=== PATIENT | male | born 1950 | race Caucasian/White ===

== ENCOUNTER 2024-08-03 08:55 | Inpatient (IN) | payer OTHER, MEDICARE, SELFPAY ==
[2024-07-29 07:33] VITALS: BMI 34.0
[2024-08-03] VITALS (18 sets, daily range): BP systolic 96–144; BP diastolic 54–70; PULSE 67–83; RESP 10–20; TEMP 35.9–36.9; O2SAT 83–98; BMI 34.1
--- NOTE | 2024-08-03 06:00 | DI.RAD.S_ITS ---
PROCEDURE: XR KNEE RT 1TO2V INDICATIONS: TKA TECHNIQUE: 2 view(s) of the knee acquired. COMPARISON: [facility] [place], [place], XR BONE LENGTH SCANOGRAM, 06/29/2024, 9:03. FINDINGS: Bones: Patient is status post revision knee joint arthroplasty. Hardware components are in expected positions. Visualized bony structures are intact. Soft tissues: Overlying postoperative changes are noted. IMPRESSION: Expected post-operative appearance of a knee arthroplasty. Dictated by: Irma Nunez M.D. on 08/03/2024 at 20:57 Approved by: Irma Nunez M.D. on 08/03/2024 at 20:58
[2024-08-03] MEDS: ACETAMINOPHEN 325 MG TABLET 975 MG PO (10:16)
[2024-08-03] MEDS: LACTATED RINGERS 1,000 ML 42 ML IV ×3 (10:17→15:54)
[2024-08-03] MEDS: ALBUTEROL/IPRATROPIUM 3 ML AMPUL INH ×2 (10:17→19:40)
[2024-08-03] MEDS: GABAPENTIN 300 MG CAPSULE PO (10:17)
--- NOTE | 2024-08-03 10:17 | PM.PREOP ---
Pre-operative Note Interval Note History & Physical reviewed/Exam performed by Physician: Yes Changes to H&P: No
[2024-08-03] MEDS: TRANEXAMIC ACID 1,000 MG VIAL 1000 MG INJ ×2 (11:20→15:38)
[2024-08-03] MEDS: CEFAZOLIN 2 GM/100 ML PREMIX 100 ML IV ×2 (11:20→14:10)
[2024-08-03] MEDS: CEFEPIME 2 GM in SODIUM CHLORIDE 0.9% 100 ML IV ×2 (11:39→23:48)
--- NOTE | 2024-08-03 11:58 | SUR.OPER ---
Supine on padded OR bed. Pillow under head, arms secured on padded armboards <90 degree abduction. Safety belt across torso. Non-operative leg secured with tape over blanket over lower leg. Operative leg secured in DeMayo/Eric positioner. Foam padded brace at thigh of operative leg.
[2024-08-03] MEDS: ROPIVACAINE/EPI/CLONIDINE/KET 50 ML SYRINGE INJ (12:11)
[2024-08-03] MEDS: VANCOMYCIN 1,000 MG VIAL 1000 MG TOP ×2 (12:56→15:07)
[2024-08-03] MEDS: GENTAMICIN 80 MG/2 ML VIAL 120 MG TOP (13:00)
--- NOTE | 2024-08-03 16:01 | P.OP_ITS ---
Operative Date/Time/Diagnoses Date of procedure: 08/03/24 Pre-op diagnosis: Right knee periprosthetic joint infection Post-op diagnosis: same Procedure & Clinicians Procedure: Explantation of right total knee arthroplasty with separate set up for implantation of antibiotic eluting cement spacer as well as antibiotic eluting calcium sulfate pellets Same procedure as scheduled: Yes Surgeon: Del Coughlin Director Of Restaurant: Yue Pearce Anesthesia Type: General, Spinal, Peripheral nerve block and Local Operative Notes Estimated Blood Loss (mL): 300 Procedure in detail: 1. Explantation of right total knee arthroplasty infected with Pseudomonas aeruginosa 2. Separate set up for implantation of antibiotic eluting cement spacer in the form of a Ignacio persona posterior stabilized femoral component and Ignacio NexGen all-polyethylene tibia 3. Insertion of calcium sulfate antibiotic pellets 4. Intraosseous delivery of cefepime Implants: * Size 9 standard posterior stabilized Ignacio persona femoral component with independent cement dowel impregnated with vancomycin and gentamicin * Size 5, 14 mm all-polyethylene Ignacio NexGen Tibial Component with a connected cement dowel impregnated with vancomycin and gentamicin * 32 mm Patella * 5 cc Stimulan calcium sulfate antibiotic pellets with vancomycin and gentamicin Cultures: -Heterotopic patellar tissue -Lateral gutter -Femoral membrane -Medial gutter -Tibial canal -Femoral canal -Periarticular tissue Procedure Summary: This 74-year-old male patient had cavitary bone loss at the site of a total knee arthroplasty performed approximately 15 years ago at an outside facility. His knee was aspirated and returned positive for Pseudomonas aeruginosa. In preparation for today's surgery referred him to an infectious disease physician at [facility] who will be helping with management of his antibiotics. Intraoperatively today I found that he was extremely stiff with an arc of motion from approximately 15-60 degrees. This made exposure challenging as there was abundant scar throughout the knee. This necessitated a quadriceps snip for exposure. The femoral component had completely debonded from the boat and was removed without any work being done to free it up from the underlying bone. The tibia appeared to remained fixed and it was necessary to use a sagittal saw as well as a single sided reciprocating saw to free it up from the bone. The patellar component was removed along with abundant heterotopic bone that had formed around the patella. There was evidence of wear in the polyethylene insert as shown in the photograph below. A separate set up was utilized for implantation of the definitive components as outlined below. Following implantation he had full flexion, mild anterior-posterior translation of the tibia in full flexion, and mild lateral laxity in full extension. Procedure in Detail: The patient was met in the preoperative holding area the day of the procedure and all questions were answered. The patient?s nares were swabbed with betadine in order to decolonize them from MRSA. Informed consent was signed and the right limb was marked with indelible ink.?The patient was brought back to the operating room where anesthesia was induced. The patient was transferred to the operating table and all bony prominences were padded. The operative site was prepped and draped in the usual sterile fashion. A second prep stick was utilized following drape placement. The incision was marked corresponding to the medial aspect of the tibial tubercle and the patella. Ioban was wrapped circumferentially around the knee. Prior to incision, tranexamic acid and cefazolin were administered. Templating images were displayed. A timeout procedure was performed verifying the patient?s identity, medical comorbidities, allergies, relevant medications, anesthesia type and the surgical plan. All present were in agreement. The assistance of a physician sales assistants and salespersons was required for positioning, room setup, soft tissue retraction and wound closure. Without this assistance, the procedure would have been significantly more challenging and time consuming.?? The tourniquet was inflated prior to incision. Prior to incision I inserted an intraosseous needle into the tibia and infiltrated the intraosseous space with 60 mL of dilute cefepime, intending that this would be distributed throughout the soft tissues of the knee due to backflow secondary to the tourniquet. I made an anterior incision over the knee which excised the old scar from his prior total knee arthroplasty. I dissected down to the old arthrotomy and identified nonresorbable stitches from his index surgery. I extended the incision slightly proximally and distally to provide good soft tissue planes. I cut through the old medial parapatellar arthrotomy. I encountered significant scar in the area while doing this which made it challenging to move on with the exposure. I initially performed a medial peel distally and then returned to the proximal arthrotomy to continue working through scar. I resected scar off the anterior cortex of the femur and attempted to ysabel the patella although this point in time I was unable to. Dissected as much scar away from the pericapsular tissues as I could, including a large piece of heterotopic bone that had formed superior to the patella and was not imbedded in the quadriceps tendon. I eventually resected both the medial and lateral gutters in order to improve my exposure but still was unable to ysabel the patella. I therefore performed a quadriceps snip arthrotomy which at that point in time allowed me to ysabel the patella. I cut heterotopic bone away from the margins of the patellar button and then cut off the patellar button while holding it everted. I used a bur to remove the polyethylene pegs from the prior patellar button as well as a rongeur to remove the underlying cement. This left 3 holes which encompassed a large portion of the patella and I planned to reuse those original holes for implantation of the patellar button at the conclusion of the procedure on the clean side as I did not feel that there was sufficient bone stock remaining 2 drill new holes. I then exposed the femoral component. I found that it was grossly loose and removed by hand without any instrumentation being passed into the bone cement interface. Considerable cement remained on the back of the femoral component but no bone loss occurred with manual extraction. I then exposed the tibia. I found that this was actually well fixed. Used a combination of a sagittal saw, a single sided reciprocating saw, and osteotomes to free it up and then used a tamp to back it out. Once this was removed used a flag osteotome to remove cement from the tibial canal until all cement had been removed. Rigid reamers were passed into the femoral and tibial canals and reamings from both were sent for culture. I made freshening cuts on both the tibia and the femur corresponding to a mechanical axis alignment based on those rigid reamers. This involved a 10 mm resection off the distal femur and a freshening cut on the tibia which I intended to be less than 5 mm. With the bony injury resected I placed a spacer block in the knee in full extension which corresponded to a 14 mm polyethylene insert and found that the knee rested in full extension. I therefore planned to use that size. I placed a size 8 femoral component initially and found that it was slightly small so I used a size 9 femoral component trial. I found that it did not quite sit down completely on the chamfers so I made a saw cut for the anterior chamfer to allow to sit down more. I then trialed with this construct and found it satisfactory. Having completed my mechanical debridement I now proceeded with a chemical debridement. This involved 3 L of normal saline followed by a dilute Betadine soak for 3 minutes followed by another 3 L of normal saline used in pulse lavage followed by a peroxide soak for 3 minutes followed by a final pulse lavage. Pulse lavage included the intramedullary canals of the femur and tibia respectively. I then placed a lap in the wound perfect the bony edges and provisionally closed with a running subcuticular nylon suture to hold the wound during turnover. In order to limit bioburden associated with the infected field all surgical instruments were taken out of the room at that point in time and all drapes were taken down. Wound was provisionally covered with a blue towel and Ioban during turnover. I marked the floor to remove any debris and the surgical team broke scrub, changed their surgical attire and re-prepped and draped the field. Having transitioned to the clean side of double set up surgery I then proceeded with preparation of cement dowels for the femoral and tibial canals to elute antibiotics into those canals. This involved preparing a batch of cement with vancomycin and gentamicin. I initially tried to utilize a small threaded K-wire in the all polyethylene insert of the tibia but it broke off twice so I used a larger 1. The broken smaller K-wires remained in the polyethylene insert in order to avoid further damage to it I left them in place and they will likely be evident radiographically on postoperative imaging. The larger K-wire extended down to form a cement stem off of the bottom of the all polyethylene tibia. A free hand dowel was also prepared around a K-wire to be inserted loosely into the femoral canal and captured by the cement placed around the femur. I trialed a patellar button and found that a 32 mm patellar button fit into the old holes appropriately so I planned to use that. The chemical debridement was repeated involving 3 rounds of pulse lavage intermixed with dilute Betadine and dilute peroxide soaks. Once the cement dowels had dried I compared for final implantation. Prior to this placed the Stimulan beads which contained vancomycin and gentamicin down the femoral and tibial canals. The bony ends were irrigated and cement was prepared. Cement was placed on the entirety of the undersurface of both the tibial and femoral components. Cement was placed onto the dry tibia and pressurized into the cancellous bone. I impacted the tibial component into place. Cement was removed. The tibia was reduced underneath the femur and placed cement onto the dry surface of the resected femur. I placed the femoral component. Cement was removed from around the femur. I brought the knee into extension and manually pressurized the construct by pushing on the heel while the cement dried. I placed cement into the patella and compressed the patellar button in place. The knee was bathed in a dilute mixture of betadine and peroxide. A mixture of Ropivacaine, Epinephrine, Clonidine and Toradol was infiltrated throughout the soft tissues into structures including the VMO, patellar tendon, quadriceps tendon, MCL and femoral periosteum. The knee was copiously irrigated with pulse lavage. Once cement had been allowed to dry the knee was again trialed. Range of motion was assessed by ensuring the knee could achieve full extension and assessing maximum passive knee flexion by elevating the femur and allowing the heel to passively fall towards the buttock. Gap symmetry was assessed by stressing the medial and lateral compartments in both extension and flexion. Laxity was assessed in both extension and flexion and the polyethylene trial was adjusted with shims as necessary. Patellar tracking was assessed with knee flexion. The tourniquet was let down and the polyethylene trial was removed. I inspected the knee inspected for excess cement and any residual bleeding. Hemostasis was achieved. The arthrotomy and the quadriceps snip were closed with non-absorbable interrupted suture ensuring that this extended to the top of the arthrotomy. This was backed up with running barbed suture throughout the arthrotomy. The skin was closed with 2-0 and 3-0 sutures. Surgical glue was applied and a soft dressing was placed.?The sponge, instrument and needle counts were reported as being correct at the end of the case.??No obvious complications occurred. The patient was transferred from the operating table back to a stretcher. The patient emerged from anesthesia without difficulty and was taken to the PACU in a stable condition.? Plan for aftercare: * Weightbearing as tolerated * Knee immobilizer to remain in place for 7 days postoperatively * Christiana incisional wound VAC in place which should remain in place until his follow up. The battery old diet for a week at which point the cord can be removed in it can be used as a normal dressing * IV cefepime has been ordered per the patient's infectious disease physician Dr. Mckenzie from [facility] in [place]. We will follow the numerous cultures that were obtained today and adjust antibiotics as needed based on those * Aspirin 81 twice per day for DVT prophylaxis * I have consulted the medical team for assistance with his baseline respiratory issues as well as management of his infectious disease needs during this admission * Multimodal pain regimen with no IV opioids ordered * Follow up at [facility] in 2 weeks * Detailed postoperative instructions available at [email or web address]
[2024-08-03] MEDS: ALBUTEROL 2.5 MG/3 ML NEB (ADULT) INH (16:58)
[2024-08-03] MEDS: TAMSULOSIN 0.4 MG CAPSULE PO (18:58)
[2024-08-03] MEDS: ACYCLOVIR 400 MG TABLET 200 MG PO (18:59)
--- NOTE | 2024-08-03 19:05 | PC.NURSE ---
Patient is a pleasant man admitted to room 223 around 1730. He had a r.total knee replacement with antibiotic spacers put in. He is groggy but alert and oriented x4. He does have some forgetfulness. Scrotum is slightly swollen and patient has a colbert catheter in. Patient has a arely drain present with an immobilizer on, weight bearing at this time is NWB. He has a rash on his r.extremity under dressing and a pinpoint rash to the l.hip. He is eating now. Patient has pulmonary hx, with copd and chf. He was given iv lasix in surgery and he is resting comfortably now.
[2024-08-03] MEDS: BUDESONIDE 0.5 MG/2 ML NEB INH (19:40)
[2024-08-03] MEDS: DOCUSATE 100 MG CAPSULE PO (20:24)
[2024-08-03] MEDS: ASPIRIN EC 81 MG TABLET PO (20:24)
[2024-08-03] MEDS: ATORVASTATIN 20 MG TABLET PO (20:24)
[2024-08-03] MEDS: OXYBUTYNIN 5 MG TABLET PO (20:24)
[2024-08-03] MEDS: ACETAMINOPHEN 325 MG TABLET 650 MG PO (23:49)
[2024-08-03] MEDS: OXYCODONE IR 5 MG TABLET PO (23:51)
[2024-08-04] VITALS (9 sets, daily range): BP systolic 94–130; BP diastolic 50–67; PULSE 68–94; RESP 12–22; TEMP 35.9–36.7; O2SAT 89–100
[2024-08-04 05:05] LABS: Hematocrit 33.4 % (41-53); Hemoglobin 10.9 g/dL (13.5-17.5)
[2024-08-04] MEDS: OXYCODONE IR 10 MG TABLET PO ×5 (06:06→23:37)
[2024-08-04] MEDS: ACETAMINOPHEN 325 MG TABLET 650 MG PO ×4 (06:06→23:49)
[2024-08-04] MEDS: ALBUTEROL/IPRATROPIUM 3 ML AMPUL INH ×3 (07:46→15:17)
[2024-08-04] MEDS: BUDESONIDE 0.5 MG/2 ML NEB INH (07:46)
[2024-08-04] MEDS: ASPIRIN EC 81 MG TABLET PO ×2 (09:43→23:37)
[2024-08-04] MEDS: DOCUSATE 100 MG CAPSULE PO ×2 (09:44→23:37)
[2024-08-04] MEDS: CYANOCOBALAMIN (VITAMIN B-12) 500 MCG TABLET 2000 MCG PO (09:44)
[2024-08-04] MEDS: PANTOPRAZOLE DR 20 MG TABLET PO (09:44)
[2024-08-04] MEDS: buPROPion XL 150 MG TAB 300 MG PO (09:44)
[2024-08-04] MEDS: FERROUS SULFATE 325 MG TABLET PO (09:44)
[2024-08-04] MEDS: OXYBUTYNIN 5 MG TABLET PO ×2 (09:44→23:38)
[2024-08-04] MEDS: FINASTERIDE 5 MG TABLET PO (09:44)
[2024-08-04] MEDS: FUROSEMIDE 20 MG TABLET PO (09:44)
[2024-08-04] MEDS: POTASSIUM CHLORIDE 10 MEQ TAB PO (09:48)
--- NOTE | 2024-08-04 11:01 | PM.PNPO.1 ---
Subjective Subjective Interval history: Nicholas is a pleasant 74 year old male who is POD#1 s/p Explantation right total knee arthroplasty with separate set up for implantation of antibiotic eluting cement spacer as well as antibiotic eluting calcium sulfate pellets for a Right knee periprosthetic joint infection by Dr. Coughlin. This morning he reports he is doing well, he has not been out of bed to work w/ PT yet but states he has been out of bed to use the bathroom. He still has his Calhoun in place. He lives at home with his and son and states he would like to discharge to home with them once medically stable. His infectious disease doctor is Dr. Mckenzie at [facility], current treatment plan as cefepime for 6 weeks. Intraop specimens obtained are currently with no growth so far, final cultures are pending. Denies fever, chills, chest pain, SOB, nausea, vomiting. Denies any numbness or tingling who has right lower extremity. Exam Vital Signs (past 8 hours): - 08/04/24 04:00 08/04/24 07:44 Temperature 97.5 F L Pulse Rate 78 71 Respiratory Rate 17 18 Blood Pressure 94/50 L Pulse Oximetry 93 93 Oxygen Delivery Method Room Air Fraction of Inspired Oxygen 28 SaO2/FiO2 Ratio 321 Oxygen Delivery Method Room Air Oxygen Flow Rate 2 Narrative Exam Narrative: Patient sitting comfortably in bed during our interview today. No acute distress. AOx3. Grossly normal alignment of the right lower extremity with moderate swelling to the right knee and ankle. 5/5 strength with DF, PF, EHL bilaterally. Knee immobilizer in place. Gross sensation intact throughout bilateral lower extremities. Calves soft and non-tender bilaterally. SCDs are on and functioning. Brisk capillary refill, pulses intact. Post-surgical dressing clean, dry and intact over the right knee without drainage. Objective Labs 08/04/24 04:53 Labs: Laboratory Results - last 24 hr 08/04/24 04:53 Hgb 10.9 L Hct 33.4 L [facility] Medical History (Updated 08/03/24 @ 10:32 by Jacek Macdonald RN) Cross-eyed Aspiration into airway Nasal fracture Nasal septal deviation Opioid dependence IBS (irritable bowel syndrome) Depression Prediabetes BANDA (dyspnea on exertion) CHF (congestive heart failure) Anemia Dysphagia HLD (hyperlipidemia) HTN (hypertension) COPD (chronic obstructive pulmonary disease) JUN on CPAP Maxillary sinusitis, chronic Surgical History (Updated 07/29/24 @ 09:44 by Basia Patricia RN) History of intestinal surgery (03/10/17) History of total right knee replacement History of appendectomy Social History household members: spouse and children Smoking Status: Former smoker alcohol intake: former Assessment & Plan Post-op Postoperative Procedures: Procedures Operation Date: 08/03/24 10:45 Actual Procedure Side Surgeon p Explantation of right total knee arthroplasty with placement of articulating antibiotic cement spacer Right Del Coughlin MD Postoperative plan narrative: 1) Plan to discharge to home today with and son today or tomorrow pending progress w/ PT, voiding trial, picc placement. Appreciate CM input on possible HH referral. 2) Continue multimodal pain management with ice to the knee for additional pain control. 3) ASA b.i.d. for DVT prophylaxis. 4) Weightbearing as tolerated but must remain in knee immobilizer for 7 days postoperatively. Outpatient physical therapy to work on range of motion and mobility. 5) Keep dressing intact, clean, dry until 2 week postop appointment. No soaking the incision site in pools or tubs. No topical ointments or creams to the incision site. 6) Follow up at [facility] orthopedics in 2 weeks for a postop appointment and wound check. 7) IV cefepime has been ordered per the patient's infectious disease physician Dr. Mckenzie from [facility] in [place]. We will follow the numerous cultures that were intra-op and adjust antibiotics as needed based on those. PICC line ordered to be placed today. 8) Discontinue Calhoun today. All patient's questions were answered, they demonstrates understanding and are in agreement with the plan. Call our office if any questions or concerns arise. Quality VTE Deep Vein Thrombosis/Pulmonary Embolism Present on Admission: No
--- NOTE | 2024-08-04 11:31 | PT.IIE ---
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, initial encounter (08/03/24) Infection and inflammatory reaction due to other internal joint prosthesis, initial encounter (08/03/24) Presence of right artificial knee joint (08/03/24) Presence of unspecified artificial knee joint (08/03/24) Surgery Performed Operation Date: 08/03/24 10:45 Actual Procedures p Explantation of right total knee arthroplasty with placement of articulating antibiotic cement spacer(Right) - Del Coughlin MD Surgical History (Last Updated 07/29/24 @ 09:44 by Basia Patricia, CYNTHIA) History of appendectomy History of intestinal surgery (03/10/17) History of total right knee replacement Medical History (Last Updated 08/03/24 @ 10:32 by Jacek Macdonald RN) Anemia Aspiration into airway CHF (congestive heart failure) COPD (chronic obstructive pulmonary disease) Cross-eyed Depression BANDA (dyspnea on exertion) Dysphagia HLD (hyperlipidemia) HTN (hypertension) IBS (irritable bowel syndrome) Maxillary sinusitis, chronic Nasal fracture Nasal septal deviation Opioid dependence JUN on CPAP Prediabetes Physical Therapy Inpatient Evaluation/Re-Eval M1 PT/OT-IP Prior Functional Status Start: 08/04/24 12:30 Freq: NEEDED Status: Active Protocol: Document 08/04/24 11:31 AB (Rec: 08/04/24 12:47 AB [id number]) Medical Review Prior Functional Status Medical History Reviewed Yes Communication able to make needs known Mobility and Gait pt stted that he was independent with all mobilities and ambulation using a SPC Social History Household Members spouse,children Living Arrangements House Number of Floors (Floors) Two Floors Number of Stairs To Enter/Railing? 2 steps without railing to enter pt will stay on main level of the house Home Environment Standard Height Toilet,Walk in Shower,Built-In Shower Seat Home Equipment Front Wheel Walker,Straight Cane,Hand Held Shower,Grab Bars In Shower Additional Social History Comment pt has a recliner and plans to sleep on at this time pt has his spouse and son to assist him at home M2 PT-IP Current Condition Start: 08/04/24 12:30 Freq: NEEDED Status: Active Protocol: Document 08/04/24 11:31 AB (Rec: 08/04/24 12:47 AB [id number]) Physical Therapy Current Condition Current Condition Evaluation Date 08/04/24 Treatment Diagnosis R knee cement space placement; difficulty in walking Onset Date 08/03/24 M3 PT-IP Subjective Start: 08/04/24 12:30 Freq: NEEDED Status: Active Protocol: Document 08/04/24 11:31 AB (Rec: 08/04/24 12:47 AB [id number]) Subjective Physical Therapy Visit Type Type Initial Evaluation Visit Start Time 11:31 Visit Stop Time 12:00 Number of HEAD CHARRER Visits 0 Physical Therapy Visit Comments Patient Comments agreeable to do PT Therapy Pain Assessment Pain When Pain Assessed At Rest Pain Present Pain Present Pain Reported Location Right Knee Intensity 5 Scale Used Numeric (0 - 10) Pain Management Techniques Distraction,Modification of Treatment,Re-positioning, Timing of Activity with Medications M4 PT-IP Mobility and Gait Start: 08/04/24 12:30 Freq: NEEDED Status: Active Protocol: Document 08/04/24 11:31 AB (Rec: 08/04/24 12:47 AB [id number]) PT-Transfer Assessment Sit to and From Stand Sit to and from Stand Standby Assistance,1 Person Assistance,Use of Upper Extremities Equipment Transfer Assistive Device Gait Belt,Front Wheeled Walker Orthotic/Prosthetic Devices or Brace: No Transfers Transfer Destination Toilet Transfer Technique ambulated Transfer Ability Level of Assist Standby Assistance,1 Person Assistance,Use of Upper Extremities Comments Mobility Comments pt sitting on EOB and agreed to do PT. Obtained PLOF and home setup. pt requested to use the toilet. completed sit to stand SBA and ambulated to the toilet using fWW SBA. sit to stand from the toilet using grab bar SBA. pt ambulated in the hallway using FWW SBA to CGA ~ 350 ft. CGA towards end of ambulation due to c/o UE tiredness. pt sat back on the chair. positioned on the chair. call light and table positioned next to pt. Gait Assessment Gait Gait Assistance Required: Standby Assistance,Contact Guard Assist Distance (Feet) 350 Able to Maintain Weight Bearing Status Yes During Gait Assistive Devices Assistive Device Gait Belt,Front Wheeled Walker Orthotic/Prosthetic Devices or Brace: No Gait Deviations General Gait Pattern Antalgic Factors Limiting Gait Function Factors Limiting Gait Function Decreased Activity Tolerance, Decreased Strength,Limited Range of Motion,Pain,Poor Balance,Poor Safety Awareness PT-Balance Assessment Sitting Balance and Reactions Static Sitting Balance Ability Normal Dynamic Sitting Balance Ability Normal Standing Balance and Reactions Static Standing Balance Ability Fair Dynamic Standing Balance Ability Fair Device Used FWW M5 PT-IP Objective Assessments Start: 08/04/24 12:30 Freq: NEEDED Status: Active Protocol: Document 08/04/24 11:31 AB (Rec: 08/04/24 12:47 AB [id number]) Orientation Orientation/Cognition Level of Alertness Alert Orientation Name,Place,Situation Language Function Ability No Deficits Noted Safety Awareness Decreased Safety Awareness Memory Description No Deficits Noted Gross Range of Motion Lower Extremity ROM Impairments R knee on knee immobilizer Strength Comments Strength Comments R knee NT: on knee immobilizer Sensation Assessment Sensation Gross Sensation WNL Muscle Tone Muscle Tone WNL Yes M6 PT-IP Treatment Start: 08/04/24 12:30 Freq: NEEDED Status: Active Protocol: Document 08/04/24 11:31 AB (Rec: 08/04/24 12:47 AB [id number]) Physical Therapy Treatment Education Education Provided Precautions,Weight Bearing Status,Safety M7 PT-IP Assessment and Plan Start: 08/04/24 12:30 Freq: NEEDED Status: Active Protocol: Document 08/04/24 11:31 AB (Rec: 08/04/24 12:47 AB [id number]) PT Summary Assessment and Plan Potential Rehabilitation Potential Fair Status of Condition at Evaluation Evolving Summary Impairments Pain,ROM,Strength,Balance, Coordination,Cognition,Bed Mobility,Transfers,Gait, Activity Tolerance Assessment Summary pt is a 74 y/o M who had a previous R TKA and underwent explantation of R TKA and implantation of antibiotic cement spacer POD1. pt is WBAT and has a R knee immobilizer on. pt requiring SBA to CGA with mobilities using FWW. pt plans to go home and will have his family assist him at home. Goals Transfer Goal Independent,Front Wheeled Walker Gait Goal Independent,Front Wheel Walker Gait Distance 350 Other Goals up/down 2 steps using SPC CGA Days to Meet Goals 5 Frequency of Treatment Frequency Of Treatment Once a Day Treatment Plan Physical Therapy Treatment Plan Bed Mobility Training,Transfer Training,Gait Training, Therapeutic Exercise,Balance Retraining,Post Op Education, Discharge Planning,Hot or Cold Pack,Neuromuscular Re-ed, Coordination Retraining,Manual Therapy Other Recommendations and Next Treatment stair climbing Focus Precautions Brace R knee immobilizer Weight Bearing Status Weight Bearing Status Weight Bear as Tolerated Allowed Weight Bearing Amount (enter % RLE WBAT or #) (%) Recommendations To Nursing Amount of Assist Needed 1 Person Assist Discharge Recommendations PT Discharge Recommendations Home with Assistance Transportation Needs at Discharge Private Vehicle
--- NOTE | 2024-08-04 12:28 | PC.NURSE ---
Patient is alert and oriented x4, he is sitting up in the chair after working with physical therapy and ambulating in the halls. He has a arely dressing with an immobilizer on, patient is bearing weight on the leg and just complains of pain now at 7/10, he is getting some tylenol and oxycodone 10mg from [facility].
[2024-08-04] MEDS: CEFEPIME 2 GM in SODIUM CHLORIDE 0.9% 100 ML IV (12:39)
--- NOTE | 2024-08-04 13:36 | DI.RAD.S_ITS ---
PROCEDURE: XR CHEST FOR PICC 1V INDICATIONS: PICC verify COMPARISON: None. FINDINGS: PICC was placed by the intravenous therapy team from the left side. Fluoroscopic spot film demonstrates the tip of PICC projecting to the area of superior vena cava. IMPRESSION: Tip of PICC projects to the area of superior vena cava. Dictated by: Isaac Goodwin M.D. on 08/04/2024 at 14:44 Approved by: Isaac Goodwin M.D. on 08/04/2024 at 14:44
--- NOTE | 2024-08-04 14:00 | OT.IP.EVAL ---
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, initial encounter (08/03/24) Infection and inflammatory reaction due to other internal joint prosthesis, initial encounter (08/03/24) Presence of right artificial knee joint (08/03/24) Presence of unspecified artificial knee joint (08/03/24) Surgery Performed Operation Date: 08/03/24 10:45 Actual Procedures p Explantation of right total knee arthroplasty with placement of articulating antibiotic cement spacer(Right) - Del Coughlin MD Past Medical History (Last Updated 08/03/24 @ 10:32 by Jacek Macdonald, CYNTHIA) Anemia Aspiration into airway CHF (congestive heart failure) COPD (chronic obstructive pulmonary disease) Cross-eyed Depression BANDA (dyspnea on exertion) Dysphagia HLD (hyperlipidemia) HTN (hypertension) IBS (irritable bowel syndrome) Maxillary sinusitis, chronic Nasal fracture Nasal septal deviation Opioid dependence JUN on CPAP Prediabetes Surgical History (Last Updated 07/29/24 @ 09:44 by Basia Patricia, CYNTHIA) History of appendectomy History of intestinal surgery (03/10/17) History of total right knee replacement Occupational Therapy Inpatient Evaluation/Re-Eval M1 PT/OT-IP Prior Functional Status Start: 08/04/24 12:30 Freq: NEEDED Status: Active Protocol: Document 08/04/24 14:31 [facility] (Rec: 08/04/24 14:43 [facility] [id number]) Medical Review Prior Functional Status Medical History Reviewed Yes Communication able to make needs known Mobility and Gait pt stated that he was independent with all mobilities and ambulation using a SPC Activities of Daily Living and IADL's Independent with all needs. Social History Household Members spouse,children Living Arrangements House Number of Floors (Floors) Two Floors Number of Stairs To Enter/Railing? 2 steps without railing to enter pt will stay on main level of the house Home Environment Standard Height Toilet,Walk in Shower,Built-In Shower Seat Home Equipment Front Wheel Walker,Straight Cane,Hand Held Shower,Grab Bars In Shower Additional Social History Comment pt has a recliner and plans to sleep on at this time pt has his spouse and son to assist him at home M2 OT-IP Current Condition Start: 08/04/24 14:31 Freq: Status: Active Protocol: Document 08/04/24 14:31 CCC (Rec: 08/04/24 14:43 [facility] [id number]) Occupational Therapy Current Condition Current Condition Evaluation Date 08/04/24 Treatment Diagnosis Right knee cement space placement Diagnosis Onset Date 08/03/24 Post Operative Precautions Other Precautions Dr. Coughlin clarified for pt to have knee immobilizer on except for hygiene needs at all times and to be taken off during 1st outpt PT appointment. Weight Bearing Status Weight Bearing Status Weight Bear as Tolerated M3 OT- IP Subjective and Pain Start: 08/04/24 14:31 Freq: Status: Active Protocol: Document 08/04/24 14:31 [facility] (Rec: 08/04/24 14:43 [facility] [id number]) OT- Subjective Occupational Therapy Visit Type Type Initial Evaluation Visit Start Time 13:55 Visit Stop Time 14:32 Occupational Therapy Visit Comments Patient Comments Pt agreed to get up to use the bathroom. Patient/Caregiver Goals TO go home. OT Pain Assessment Pain When Pain Assessed At Rest Pain Present Pain Present Pain Reported Location Right Knee Intensity 4 Scale Used Numeric (0 - 10) M4 OT- IP ADL's Start: 08/04/24 14:31 Freq: Status: Active Protocol: Document 08/04/24 14:31 [facility] (Rec: 08/04/24 14:43 [facility] [id number]) OT BVJ-Hutw-Azstzrf General Evaluation Self-Feeding Ability Independent OT ADL-Grooming General Evaluation Grooming Ability Standby Assistance Comments OT Grooming Comments Set-up while standing in FWW in front of him at the sink. OT ADL-Oral Care General Eval Oral Care Ability Independent OT ADL-Dressing General Eval Lower Body Dressing Ability Moderate Assistance Comments OT Dressing Comments Pt will need assist for right socks/shoes. Pt does have clinical biostatistics director at home to use. OT ADL-Toileting General Evaluation Toileting Ability Standby Assistance Comments OT Toileting Comments SBA for safety. OT ADL-Bathing Comments OT Bathing Comments Educated to cover his immobilizer during showers or sponge off. Per Dr. Coughlin immobilizer okay to take off for hygiene needs- pt will benefit from a shower chair and assist. M5 OT- IP IADL's Start: 08/04/24 14:31 Freq: Status: Active Protocol: Document 08/04/24 14:31 [facility] (Rec: 08/04/24 14:43 [facility] [id number]) OT-Instrumental Activities of Daily Living Home Safety Awareness Awareness of Need for Assistance at Home Good Awareness Ability to Problem Solve Emergency Able to Problem Solve Situations Meal Preparation Meal Preparation Caregiver Provides Assist Supervisor Labor Gang Supervisor Labor Gang Caregiver Provides Assist Driving Driving Concerns Identified Regarding Safety Driving Comments Pt aware that he will not be able to drive at this time. M6 OT- IP Functional Cognition Start: 08/04/24 14:31 Freq: Status: Active Protocol: Document 08/04/24 14:31 [facility] (Rec: 08/04/24 14:43 [facility] [id number]) Cognitive Factors Limiting Selfcare Function Cognitive Ability Level of Alertness Alert Patient Orientation Name,Place,Situation Attention Span Ability Capable of Focused Attention, Capable of Sustained Attention Ability to Follow Commands Able to Follow One Step Commands Safety Awareness Underestimates Need for Assistance Cognitive Comments Cognitive Assessment Comments Pt needing cues for FWW safety to always push up from surfaces versus grab the FWW to stand. Pt also needing vc to slow down and to keep the FWW in front of him at all times. 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 M7 OT- IP Mobility and Balance Start: 08/04/24 14:31 Freq: Status: Active Protocol: Document 08/04/24 14:31 [facility] (Rec: 08/04/24 14:43 [facility] [id number]) OT-Transfer Assessment Sit to and From Stand Sit to and from Stand Standby Assistance,Contact Guard Assistance Transfers Transfer Ability Standby Assistance Technique Transfer Destination Bed,Chair,Toilet Transfer Technique Stand Step Pivot Devices Transfer Assistive Devices Gait Belt,Front Wheeled Walker Comments Mobility Comments CGA to stand from lower surfaces. Once on his feet close SBA. Pt suggested to get sliders or put tennis balls on the back on the legs on his FWW. OT- Balance Assessment Sitting Balance and Reactions Static Sitting Balance Ability Normal Dynamic Sitting Balance Ability Good Standing Balance and Reactions Static Standing Balance Ability Good Dynamic Standing Balance Ability Fair M8 OT- IP Objective Assessments Start: 08/04/24 14:31 Freq: Status: Active Protocol: Document 08/04/24 14:31 [facility] (Rec: 08/04/24 14:43 [facility] [id number]) OT Strength Comments Strength Comments WFL for needs. M9 OT- IP Assessment and Plan Start: 08/04/24 14:31 Freq: Status: Active Protocol: Document 08/04/24 14:31 [facility] (Rec: 08/04/24 14:43 [facility] [id number]) OT Summary Assessment and Plan Potential Rehabilitation Potential Good Analytic Complexity at Evaluation Moderate Summary OT Impairments Pain,Range of Motion,Strength, Balance,Functional Mobility, Dressing,Toileting,Bathing, Toilet Transfers,Shower Transfers,Activity Tolerance Progress Towards Goals Progressing Toward Goals Assessment Summary Pt MOD complexity and main barriers are decreased safety awareness, needing vc to slow down, and also a bit groggy and forgetful after surgery. Pt needing safety reminders for FWW use. Pt to go home with 24/7 assist and outpt PT. Goals Grooming Goal Independent Dressing Goal Minimal Assistance Toileting Goal Independent Bathing Goal Minimal Assistance Toilet Transfer Goal Independent Shower Transfer Goal Standby Assistance Days to Meet Goals 5 Frequency of Treatment Other frequency 5x/week Treatment Plan OT Treatment Plan ADL Training,Functional Mobility,Patient/Family Education,Discharge Planning Discharge Recommendations OT Discharge Recommendations Home with 24/7 Assist Available,Outpatient PT Transportation Needs at Discharge Private Vehicle
--- NOTE | 2024-08-04 16:47 | CM.DPNOTE ---
DCP note PROCESS TREATER reviewed EMR Payer Healthcare Management and Medicare pt A only. Per chart, pt POD1 right knee revision with Dr. Carolina. has a PICC line. current plan is for IV Cefepime 6 weeks, but final cultures pending. currently on 2gm Q12h. followed by [facility] Carrera in [facility]. PT/OT=home with assist. Per chart, pt lives with spouse and son indep in [place], [place] and preference is to return home when able. PROCESS TREATER unable to meet with pt today due to triaging needs. likely need home infusion solutions referral tomorrow if cultures are finalized. CM team will follow closely for final iv abx recs and DCP coordination as needed JENN Parisi
[2024-08-04] MEDS: TAMSULOSIN 0.4 MG CAPSULE PO (18:08)
[2024-08-04] MEDS: ONDANSETRON 4 MG/2 ML INJ IV (19:45)
[2024-08-04] MEDS: METOCLOPRAMIDE 10 MG/2 ML INJ IV (22:00)
[2024-08-04] MEDS: TRAMADOL 50 MG TABLET PO (23:35)
[2024-08-04] MEDS: ATORVASTATIN 20 MG TABLET PO (23:35)
[2024-08-04] MEDS: ACYCLOVIR 400 MG TABLET 200 MG PO (23:37)
[2024-08-05] MEDS: CEFEPIME 2 GM in SODIUM CHLORIDE 0.9% 100 ML IV ×2 (00:29→11:39)
[2024-08-05] MEDS: OXYCODONE IR 5 MG TABLET PO ×2 (04:30→08:42)
--- NOTE | 2024-08-05 07:45 | PC.NURSE ---
At start of shift pt experiencing nausea and repeated episodes of emesis. Zofran given per AUG, with no effectr. Pt complaining of intense abdominal pressure/pain & stated he had not passes gas or stool since before his surgery. Dr Landrum was notified and orders for reglan, a suppository and and enema were recieved. After administration of reglan, pt's nausea and vomiting eased, and this RN administered the suppository. Pt passed a large amount of gas and experienced immediate relief. Around 0430, pt ambulated to bathroom 2pa/ww and passes more gas and stool. Pt complained of pain 2x & was medicated wiht oxycodone 2x per AUG. Pt slept with CPAP applied throughout night.
[2024-08-05 07:49] VITALS: PULSE 82; RESP 16; O2SAT 93
[2024-08-05] MEDS: BUDESONIDE 0.5 MG/2 ML NEB INH (08:02)
[2024-08-05] MEDS: ALBUTEROL/IPRATROPIUM 3 ML AMPUL INH ×2 (08:03→10:56)
[2024-08-05] MEDS: buPROPion XL 150 MG TAB 300 MG PO (08:40)
[2024-08-05] MEDS: CYANOCOBALAMIN (VITAMIN B-12) 500 MCG TABLET 2000 MCG PO (08:40)
[2024-08-05] MEDS: ASPIRIN EC 81 MG TABLET PO (08:40)
[2024-08-05] MEDS: OXYBUTYNIN 5 MG TABLET PO (08:40)
[2024-08-05] MEDS: FINASTERIDE 5 MG TABLET PO (08:40)
[2024-08-05] MEDS: DOCUSATE 100 MG CAPSULE PO (08:41)
[2024-08-05] MEDS: PANTOPRAZOLE DR 20 MG TABLET PO (08:42)
[2024-08-05] MEDS: FERROUS SULFATE 325 MG TABLET PO (08:42)
[2024-08-05 09:15] LABS: Add Manual Diff / Slide Review NO; Basophils Absolute Auto 0 /uL (0-100); Basophils Percent Auto 0.3 % (0-2); Eosinophils Absolute Auto 0 /uL (0-450); Eosinophils Percent Auto 0.3 % (2-4); Hematocrit 33.1 % (41-53); Hemoglobin 10.8 g/dL (13.5-17.5); Lymphocytes Absolute Auto 700 /uL (1100-4500); Lymphocytes Percent Auto 8.3 % (25-40); Mean Corpuscular HGB Conc 32.7 % (30-36); Mean Corpuscular Hemoglobin 29.3 PG (26-34); Mean Corpuscular Volume 89.6 fL (80-100); Monocytes Absolute Auto 900 /uL (0-900); Monocytes Percent Auto 11.4 % (3-14); Neutrophils Absolute Auto 6600 /uL (1500-7000); Neutrophils Percent Auto 79.7 % (50-75); Platelet Count 206 X10^3/uL (150-400); Red Cell Distribution Width 14.5 % (11.6-14.8); White Blood Cell Count 8.3 X10^3/uL (4.5-11.0)
--- NOTE | 2024-08-05 09:19 | PM.DS.1 ---
History of Present Illness History of Present Illness Date Patient Seen: 08/05/24 Time Patient Seen: 09:19 Chief complaint: INPT Narrative: This 74-year-old male patient had cavitary bone loss at the site of a total knee arthroplasty performed approximately 15 years ago at an outside facility. His knee was aspirated and returned positive for Pseudomonas aeruginosa. In preparation for today's surgery referred him to an infectious disease physician at [facility] who will be helping with management of his antibiotics. Discharge Providers Provider Date of admission: 08/03/24 08:55 Discharge Date: 08/05/24 Consults: 07/29/24 10:48 Consult to Anesthesiology Routine Comment: Consulting Provider: Anesthesiologist Reason for consultation: Surgeon request. 08/03/24 06:00 Consult to Anesthesiology Routine Comment: Consulting Provider: Anesthesiologist Reason for consultation: Regional block for post operative pain control Has provider been notified: No 08/03/24 17:50 Consult to Discharge Planning Routine Comment: Consult to Occupational Therapy Evaluate & Treat Comment: Physician Instructions: Evaluate and treat Consult to Physical Therapy Evaluate & Treat Comment: Physician Instructions: postop TKA protocol Discharge provider: Eb Meyers PA-C Summary Hospital Course Discharge Diagnosis: Right knee periprosthetic joint infection Hospital Course: Procedure: Explantation of right total knee arthroplasty with separate set up for implantation of antibiotic eluting cement spacer as well as antibiotic eluting calcium sulfate pellets Same procedure as scheduled: Yes Surgeon: Del Coughlin Contact Center Representative: Yue Pearce Anesthesia Type: General, Spinal, Peripheral nerve block and Local Operative Notes Estimated Blood Loss (mL): 300 Procedure in detail: 1. Explantation of right total knee arthroplasty infected with Pseudomonas aeruginosa 2. Separate set up for implantation of antibiotic eluting cement spacer in the form of a Ignacio persona posterior stabilized femoral component and Ignacio NexGen all-polyethylene tibia 3. Insertion of calcium sulfate antibiotic pellets 4. Intraosseous delivery of cefepime Implants: Size 9 standard posterior stabilized Ignacio persona femoral component with independent cement dowel impregnated with vancomycin and gentamicin Size 5, 14 mm all-polyethylene Ignacio NexGen Tibial Component with a connected cement dowel impregnated with vancomycin and gentamicin 32 mm Patella 5 cc Stimulan calcium sulfate antibiotic pellets with vancomycin and gentamicin Cultures: -Heterotopic patellar tissue -Lateral gutter -Femoral membrane -Medial gutter -Tibial canal -Femoral canal -Periarticular tissue Status at Discharge Cognitive/behavioral status at discharge: oriented Functional status at discharge: uses cane/walker Overall status at discharge: patient is back to baseline Time Spent with Patient Time spent: Less than 30 minutes Exam Vital Signs (past 8 hours): - 08/05/24 07:49 Pulse Rate 82 Respiratory Rate 16 Pulse Oximetry 93 Oxygen Delivery Method Room Air Fraction of Inspired Oxygen 21 SaO2/FiO2 Ratio 438 Oxygen Delivery Method Room Air Oxygen Flow Rate 0 Narrative Exam Narrative: Patient found sitting comfortably in his chair. Patient's pain is controlled with oral medication. No pain at rest pain with movement of the knee. ?Pain is localized to surgical site. ?Patient declines any new numbness or tingling at the surgical extremity. ?Patient denies any shortness of breath, dizziness, light-headedness, nausea, vomiting, fever or chills. 5/5 strength in hip flexors, quadriceps, hamstrings, DF, PF, EHL, left. 3/5 strength in DF, PF, EHL, right. Sensation to light touch intact throughout BLE. Calves soft, compressible, nontender. Dressing placed intraoperatively CDI. Resp Effort & Inspection: normal respiratory effort and able to speak in complete sentences Objective Labs 08/05/24 09:05 Labs: Laboratory Results - last 24 hr 08/05/24 09:05 WBC 8.3 RBC 3.70 L Hgb 10.8 L Hct 33.1 L MCV 89.6 MCH 29.3 MCHC 32.7 RDW 14.5 Plt Count 206 Neut % (Auto) 79.7 H Lymph % (Auto) 8.3 L [place] % (Auto) 11.4 Eos % (Auto) 0.3 L Baso % (Auto) 0.3 Neut # (Auto) 6600 Lymph # (Auto) 700 L [place] # (Auto) 900 Eos # (Auto) 0 Baso # (Auto) 0 PFSH Medical History (Updated 08/03/24 @ 10:32 by Jacek Macdonald RN) Cross-eyed Aspiration into airway Nasal fracture Nasal septal deviation Opioid dependence IBS (irritable bowel syndrome) Depression Prediabetes BANDA (dyspnea on exertion) CHF (congestive heart failure) Anemia Dysphagia HLD (hyperlipidemia) HTN (hypertension) COPD (chronic obstructive pulmonary disease) JUN on CPAP Maxillary sinusitis, chronic Surgical History (Updated 07/29/24 @ 09:44 by Basia Patricia RN) History of intestinal surgery (03/10/17) History of total right knee replacement History of appendectomy Social History household members: spouse and children Smoking Status: Former smoker alcohol intake: former Discharge Assessment & Plan Assessment and Plan Assessment: Status post explantation of right total knee arthroplasty with separate set up for implantation of antibiotic eluting cement spacer as well as antibiotic eluting calcium sulfate pellets Plan of Treatment: Discharge home with home health. Weightbearing as tolerated Knee immobilizer to remain in place for 7 days postoperatively. May remove for hygiene. Catina incisional wound VAC in place which should remain in place until his follow up. The battery old diet for a week at which point the cord can be removed in it can be used as a normal dressing IV cefepime has been ordered per the patient's infectious disease physician Dr. Mckenzie from [facility] in [place]. We will follow the numerous cultures that were obtained today and adjust antibiotics as needed based on those. Home infusions have been established and can be started as soon as today. Aspirin 81 twice per day for DVT prophylaxis for 4 weeks. Baseline pain relief with acetaminophen 500 mg q.4 hours PRN. Patient has already been prescribed oxycodone 5 mg Q 4 hours prn and Zofran 4 mg Q 8 hours prn. Follow up at [facility] in 2 weeks Detailed postoperative instructions available at [email or web address] Discharge Plan Discharge Plan Patient Disposition: Home Provider Discharge Comment: DC pending PT approval. Discharge orders & Medications Prescriptions: New aspirin 81 mg Tablet,Delayed Release (Dr/Ec) 81 mg PO BID Qty: 60 0RF Continued potassium chloride 10 mEq Capsule, Extended Release 10 meq PO Q OTHER DAY Rx Instructions: Only when taking lasix. acetaminophen [Tylenol] 325 mg Tablet 650 mg PO BID PRN (Reason: Pain (Scale Score 4-6)) triamcinolone acetonide 0.1 % Cream 1 applic TOPICAL BID PRN (Reason: Itching or rash.) pantoprazole 20 mg Tablet,Delayed Release (Dr/Ec) 20 mg PO DAILY tamsulosin 0.4 mg Capsule 0.4 mg PO QPM amlodipine 10 mg Tablet 10 mg PO DAILY nitroglycerin [Nitrostat] 0.4 mg Tablet, Sublingual 0.4 mg SUBLINGUAL Q5M PRN (Reason: Chest pain.) Rx Instructions: do not exceed 3 doses per episode fluticasone propionate 220 mcg/actuation Hfa Aerosol Inhaler 2 puff INHALATION BID acyclovir 200 mg Capsule 200 mg PO 5XD PRN (Reason: cold sore.) furosemide [Lasix] 20 mg Tablet 20 mg PO Q OTHER DAY Rx Instructions: Mon, Wed, Fri. Additional days as needed for rapid weight gain with edema or dyspnea. cyanocobalamin (vitamin B-12) 2,000 mcg Tablet Extended Release 2,000 mcg PO DAILY albuterol sulfate 90 mcg/actuation Hfa Aerosol Inhaler 2 puff INHALATION TID PRN (Reason: SOB.) oxybutynin chloride 5 mg Tablet 5 mg PO BID finasteride 5 mg Tablet 5 mg PO DAILY rosuvastatin 10 mg Tablet 10 mg PO QPM bupropion HCl [Wellbutrin XL] 300 mg Tablet Extended Release 24 Hr 300 mg PO QAM ferrous gluconate 324 mg (37.5 mg iron) Tablet 324 mg PO DAILY dapagliflozin propanediol 10 mg Tablet 10 mg PO DAILY Stiolto Respimat 2.5-2.5 mcg/actuation Mist 2 puff INHALATION DAILY sacubitril-valsartan [Entresto] 97-103 mg Tablet 1 tab PO BID oxycodone 5 mg Tablet 5 mg PO Q6H PRN (Reason: back pain.) Discontinued aspirin 81 mg Tablet,Delayed Release (Dr/Ec) 81 mg PO DAILY Follow up/Referrals: Del Coughlin MD [Physician] - 08/11/24 11:30 am (Follow up w/ Anai Nunez PA-C, at [place] office on 08/11 @ 11:30) Diet/Activity/Treatments Diet: Diet as Tolerated Activity: Weightbearing as tolerated. Knee immobilizer at all times when upright x 7 days. Cold/Heat Therapy: Ice to knee as needed for pain. Skin/Wound/Dressing Care Report to your healthcare provider any signs of infection, such as:: chills, fever, night sweats, unusual drainage and unusual redness Dressing: May remove SANDY wrap and cotton padding and shower on 08/05/2024. Leave CATINA dressing in place until follow up in office. In 5-7 days, batteries will , at which point you can cut off the battery pack and dispose of it, but leave the dressing on. No bathing or otherwise soaking incision. Call the office if the dressing becomes saturated inside. Visit Report/Discharge Packet Instructions: DI for Knee Replacement Stand Alone Forms: Patient Portal/API, Stroke Signs & Symptoms Quality VTE Deep Vein Thrombosis/Pulmonary Embolism Present on Admission: No
--- NOTE | 2024-08-05 10:40 | PT.IPTN ---
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, initial encounter (08/03/24) Infection and inflammatory reaction due to other internal joint prosthesis, initial encounter (08/03/24) Presence of right artificial knee joint (08/03/24) Presence of unspecified artificial knee joint (08/03/24) Surgery Performed Operation Date: 08/03/24 10:45 Actual Procedures p Explantation of right total knee arthroplasty with placement of articulating antibiotic cement spacer(Right) - Del Coughlin MD Physical Therapy Treatment Note M2 PT-IP Current Condition Start: 08/04/24 12:30 Freq: NEEDED Status: Active Protocol: Document 08/04/24 11:31 AB (Rec: 08/04/24 12:47 AB [id number]) Physical Therapy Current Condition Current Condition Evaluation Date 08/04/24 Treatment Diagnosis R knee cement space placement; difficulty in walking Onset Date 08/03/24 M3 PT-IP Subjective Start: 08/04/24 12:30 Freq: NEEDED Status: Active Protocol: Document 08/05/24 10:40 AB (Rec: 08/05/24 12:40 AB [id number]) Subjective Physical Therapy Visit Type Type Treatment Note Visit Start Time 10:40 Visit Stop Time 10:55 Number of IVORY POLISHER Visits 0 Physical Therapy Visit Comments Patient Comments agreeable to do PT M4 PT-IP Mobility and Gait Start: 08/04/24 12:30 Freq: NEEDED Status: Active Protocol: Document 08/05/24 10:40 AB (Rec: 08/05/24 12:40 AB [id number]) PT-Transfer Assessment Sit to and From Stand Sit to and from Stand Contact Guard Assistance, Minimal Assistance,1 Person Assistance,Use of Upper Extremities Equipment Transfer Assistive Device Gait Belt,Front Wheeled Walker Orthotic/Prosthetic Devices or Brace: Yes Comments Mobility Comments pt sitting on the chair and agreed to do PT. completed sit to stand CGA to min A and ambulated towards platform step using FWW CGA to min A. pt completed up/down platform step using SPC+ FIRE ENGINE PUMP OPERATOR max A and max cues. pt ambulated back to his room using FWW CGA to min A. positioned on the chair . call light and table placed within reach. informed pt regarding caregiver training and agreed. pt refused caregiver training yesterday but currently agreeing. Cargiver training set up for this afternoon. nurse aware Gait Assessment Gait Gait Assistance Required: Contact Guard Assist,Minimum Assistance Distance (Feet) 35 Able to Maintain Weight Bearing Status Yes During Gait Assistive Devices Assistive Device Gait Belt,Front Wheeled Walker Orthotic/Prosthetic Devices or Brace: Yes Gait Deviations General Gait Pattern Antalgic,Decreased Stride Length,Decreased Feet Clearance Factors Limiting Gait Function Factors Limiting Gait Function Decreased Activity Tolerance, Decreased Strength,Limited Range of Motion,Pain,Poor Balance,Poor Safety Awareness Stair Climbing Assessment Evaluation Level of Assist On Stairs Maximal Assistance,1 Person Assistance Devices Stair Climbing Assistive Devices Straight Cane Technique/Endurance Stair Climbing Direction Ascend and Descend Stair Climbing Technique Step to Step Number of Steps Climbed 1 Stair Climbing Set # Repetitions (reps) 1 M5 PT-IP Objective Assessments Start: 08/04/24 12:30 Freq: NEEDED Status: Active Protocol: Document 08/04/24 11:31 AB (Rec: 08/04/24 12:47 AB [id number]) Orientation Orientation/Cognition Level of Alertness Alert Orientation Name,Place,Situation Language Function Ability No Deficits Noted Safety Awareness Decreased Safety Awareness Memory Description No Deficits Noted Gross Range of Motion Lower Extremity ROM Impairments R knee on knee immobilizer Strength Comments Strength Comments R knee NT: on knee immobilizer Sensation Assessment Sensation Gross Sensation WNL Muscle Tone Muscle Tone WNL Yes M6 PT-IP Treatment Start: 08/04/24 12:30 Freq: NEEDED Status: Active Protocol: Document 08/05/24 10:40 AB (Rec: 08/05/24 12:40 AB [id number]) Physical Therapy Treatment Education Education Provided Safety M7 PT-IP Assessment and Plan Start: 08/04/24 12:30 Freq: NEEDED Status: Active Protocol: Document 08/05/24 10:40 AB (Rec: 08/05/24 12:40 AB [id number]) PT Summary Assessment and Plan Potential Rehabilitation Potential Fair Summary Impairments Pain,ROM,Strength,Balance, Coordination,Sensation,Tone, Cognition,Bed Mobility, Transfers,Gait,Activity Tolerance Assessment Summary pt requiring CGA to min A with ambulation using FWW; max A for stair climbing using SPC + FIRE ENGINE PUMP OPERATOR. pt will be seen for PT this afternoon for planned caregiver training. will continue to assess progress. Goals Transfer Goal Independent,Front Wheeled Walker Gait Goal Independent,Front Wheel Walker Gait Distance 350 Other Goals up/down 2 steps using SPC CGA Days to Meet Goals 5 Frequency of Treatment Frequency Of Treatment Twice a Day Treatment Plan Physical Therapy Treatment Plan Bed Mobility Training,Transfer Training,Gait Training, Therapeutic Exercise,Balance Retraining,Post Op Education, Discharge Planning,Hot or Cold Pack,Neuromuscular Re-ed, Coordination Retraining,Manual Therapy Other Recommendations and Next Treatment stair climbing; caregiver Focus training Precautions Brace R knee immobilizer Weight Bearing Status Weight Bearing Status Weight Bear as Tolerated Allowed Weight Bearing Amount (enter % RLE WBAT or #) (%) Recommendations To Nursing Amount of Assist Needed 1 Person Assist Discharge Recommendations PT Discharge Recommendations Home with Assistance Transportation Needs at Discharge Private Vehicle
[2024-08-05] MEDS: ACETAMINOPHEN 325 MG TABLET 650 MG PO (11:39)
[2024-08-05] MEDS: OXYCODONE IR 10 MG TABLET PO ×2 (11:39→14:59)
[2024-08-05 12:12] VITALS: BP 139/51; TEMP 35.9
--- NOTE | 2024-08-05 14:35 | PT.IPTN ---
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, initial encounter (08/03/24) Infection and inflammatory reaction due to other internal joint prosthesis, initial encounter (08/03/24) Presence of right artificial knee joint (08/03/24) Presence of unspecified artificial knee joint (08/03/24) Surgery Performed Operation Date: 08/03/24 10:45 Actual Procedures p Explantation of right total knee arthroplasty with placement of articulating antibiotic cement spacer(Right) - Del Coughlin MD Physical Therapy Treatment Note M2 PT-IP Current Condition Start: 08/04/24 12:30 Freq: NEEDED Status: Active Protocol: Document 08/04/24 11:31 AB (Rec: 08/04/24 12:47 AB [id number]) Physical Therapy Current Condition Current Condition Evaluation Date 08/04/24 Treatment Diagnosis R knee cement space placement; difficulty in walking Onset Date 08/03/24 M3 PT-IP Subjective Start: 08/04/24 12:30 Freq: NEEDED Status: Active Protocol: Document 08/05/24 14:35 AB (Rec: 08/05/24 15:25 AB [id number]) Subjective Physical Therapy Visit Type Type Treatment Note Visit Start Time 14:35 Visit Stop Time 14:55 Number of SOIL CONSERVATION AIDE Visits 0 Physical Therapy Visit Comments Patient Comments agreeable to do PT M4 PT-IP Mobility and Gait Start: 08/04/24 12:30 Freq: NEEDED Status: Active Protocol: Document 08/05/24 14:35 AB (Rec: 08/05/24 15:25 AB [id number]) PT-Transfer Assessment Sit to and From Stand Sit to and from Stand Minimal Assistance,1 Person Assistance,Use of Upper Extremities Equipment Transfer Assistive Device Gait Belt,Front Wheeled Walker Orthotic/Prosthetic Devices or Brace: Yes Comments Mobility Comments pt sitting on the chair. son and spouse in room. caregiver training conducted. educated son on how to use safety belt and how to assist pt. also educated on stair climbing. pts's son was able to put safety belt on pt. assist pt with sit to stand min A and ambulated towards the step using FWW min A. pt completed up/down platform step using SPC + PRODUCT INSPECTION COORDINATOR max A x 2 and max cues. PT needed to assist pt. informed spouse that she needs to assist pt as well. pt completed up/down platform step again with son and spouse assisting using SPC+ PRODUCT INSPECTION COORDINATOR max A x 2 and max cues. pt ambulated back to his chair using FWW min A. positioned pt on the chair. call light and next to pt. pt and family without further concerns. Gait Assessment Gait Gait Assistance Required: Minimum Assistance Distance (Feet) 25 Able to Maintain Weight Bearing Status Yes During Gait Assistive Devices Assistive Device Gait Belt,Front Wheeled Walker Orthotic/Prosthetic Devices or Brace: No Gait Deviations General Gait Pattern Antalgic,Decreased Stride Length,Decreased Feet Clearance Factors Limiting Gait Function Factors Limiting Gait Function Decreased Activity Tolerance, Decreased Strength,Limited Range of Motion,Pain,Poor Balance,Poor Safety Awareness Stair Climbing Assessment Evaluation Level of Assist On Stairs Maximal Assistance,1 Person Assistance,2 Person Assistance Devices Stair Climbing Assistive Devices Front Wheel Walker Technique/Endurance Stair Climbing Direction Ascend and Descend Stair Climbing Technique Step to Step Number of Steps Climbed 1 Stair Climbing Set # Repetitions (reps) 2 M5 PT-IP Objective Assessments Start: 08/04/24 12:30 Freq: NEEDED Status: Active Protocol: Document 08/04/24 11:31 AB (Rec: 08/04/24 12:47 AB [id number]) Orientation Orientation/Cognition Level of Alertness Alert Orientation Name,Place,Situation Language Function Ability No Deficits Noted Safety Awareness Decreased Safety Awareness Memory Description No Deficits Noted Gross Range of Motion Lower Extremity ROM Impairments R knee on knee immobilizer Strength Comments Strength Comments R knee NT: on knee immobilizer Sensation Assessment Sensation Gross Sensation WNL Muscle Tone Muscle Tone WNL Yes M6 PT-IP Treatment Start: 08/04/24 12:30 Freq: NEEDED Status: Active Protocol: Document 08/05/24 14:35 AB (Rec: 08/05/24 15:25 AB [id number]) Physical Therapy Treatment Education Education Provided Safety M7 PT-IP Assessment and Plan Start: 08/04/24 12:30 Freq: NEEDED Status: Active Protocol: Document 08/05/24 14:35 AB (Rec: 08/05/24 15:25 AB [id number]) PT Summary Assessment and Plan Potential Rehabilitation Potential Fair Summary Impairments Pain,ROM,Strength,Balance, Coordination,Sensation, Cognition,Bed Mobility, Transfers,Gait,Activity Tolerance Progress Towards Goals Slow Progress due to Medical Issues,Slow Progress due to Activity Tolerance Assessment Summary caregiver training conducted and family was able to assist pt with mobility. pt plans to go home today. informed pt regarding HHPT but pt refused and stated that he will do his outpt PT. Goals Transfer Goal Independent,Front Wheeled Walker Gait Goal Independent,Front Wheel Walker Gait Distance 350 Other Goals up/down 2 steps using SPC CGA Days to Meet Goals 5 Frequency of Treatment Frequency Of Treatment Twice a Day Treatment Plan Physical Therapy Treatment Plan Bed Mobility Training,Transfer Training,Gait Training, Therapeutic Exercise,Balance Retraining,Post Op Education, Discharge Planning,Hot or Cold Pack,Neuromuscular Re-ed, Coordination Retraining,Manual Therapy Precautions Brace R knee immobilizer Weight Bearing Status Weight Bearing Status Weight Bear as Tolerated Allowed Weight Bearing Amount (enter % RLE WBAT or #) (%) Recommendations To Nursing Amount of Assist Needed 1 Person Assist Discharge Recommendations PT Discharge Recommendations Home with Assistance Transportation Needs at Discharge Private Vehicle
--- NOTE | 2024-08-05 15:30 | PC.NURSE ---
Patient d/c teaching done at bedside w/ spouse and son present. Patient states understanding of med changes and incision care. Patient is aware of f/u appt w/ PA Nunez at [facility]. All questions and concerns addressed. Pt belongings gathered by family, pt escorted to private vehicle via WC. Patient left in stable condition.
--- NOTE | 2024-08-05 15:55 | CM.DANOTE ---
DCP Cont Coordinating with Ortho team and [facility] throughout the day. Plan: Discharge home w/sp 08/06 after morning dose of IV cefepime. Resumption of care through [facility] with clinic visit in [facility] 08/06 at 3pm. Patient has his PICC placed. Emailed Devan at [facility], PICC placement note, DC Summary. [facility] has the IV abx order already from patient's ID doc in [facility]. According to Courtney Gomez PA, patient needs HH- CM team will need to arrange HH upon patient's discharge 08/06, if patient agreeable. CM team following closely for coordination efforts. JENN Paniagua Discharge Planning/Care Management CM Discharge Assessment Start: 08/05/24 15:53 Freq: Status: Active Protocol: Document 08/05/24 15:53 MARIIA (Rec: 08/05/24 15:55 MARIIA [id number]) Discharge Planning Assessment Assigned Hearing Therapy Director JENN Pisano DPOA/Assigned Designee Name Gypsy Jacobs, spouse Contact Information [phone] Advance Directives? No History Provided By Patient,Medical Record Prior Living Arrangements House Household Members spouse,children Type of transporation used prior to Drives own vehicle admit Independent with ADL's Yes Is patient alert and oriented? Yes Comment Home w/home infusion already arranged through [facility] Discharge Plan Home Transportation Arrangement Family Additional Comment [facility]
== END 2024-08-05 15:30 | disposition home health service (06) | DRG 468 ==
PROVIDERS: Physician Assistant; Admitting Provider Orthopaedic Surgery Adult Reconstructive Orthopaedic Surgery; Referring Provider Orthopaedic Surgery Adult Reconstructive Orthopaedic Surgery; Visit Provider Orthopaedic Surgery Adult Reconstructive Orthopaedic Surgery
PROC: 0SRC0EZ Replacement of Right Knee Joint with Articulating Spacer, Open Approach (ICD-10-PCS; principal; 2024-08-03 10:45)
DX: T84.53XA Infection and inflammatory reaction due to internal right knee prosthesis, initial encounter (principal); J44.9 Chronic obstructive pulmonary disease, unspecified; B96.5 Pseudomonas (aeruginosa) (mallei) (pseudomallei) as the cause of diseases classified elsewhere; T84.062A Wear of articular bearing surface of internal prosthetic right knee joint, initial encounter; T84.032A Mechanical loosening of internal right knee prosthetic joint, initial encounter; Y79.2 Prosthetic and other implants, materials and accessory orthopedic devices associated with adverse incidents; E78.5 Hyperlipidemia, unspecified; I11.0 Hypertensive heart disease with heart failure; I50.9 Heart failure, unspecified; R73.03 Prediabetes; D64.9 Anemia, unspecified; F32.A Depression, unspecified; K21.9 Gastro-esophageal reflux disease without esophagitis; G47.33 Obstructive sleep apnea (adult) (pediatric); G89.29 Other chronic pain; M54.9 Dorsalgia, unspecified; Z87.891 Personal history of nicotine dependence
CPT/HCPCS: 36415; 36569; 73560; 85014; 85018; 85025; 87070; 87075; 87205; 94640; 94762; 97116; 97162; 97166; 97530; 97535; C1776; C1713; J0690; J0692; J1100; J1171; J1642; J2250; J2405; J2704; J2765; J3010; J7613

== ENCOUNTER → 2025-03-12 14:17 | Outpatient (CLI) | payer OTHER, SELFPAY ==
[2025-02-26 15:57] VITALS: BMI 34.1
[2025-03-12 15:44] LABS: Add Manual Diff / Slide Review NO; Hematocrit 38.9 % (41-53); Hemoglobin 12.9 g/dL (13.5-17.5); Lymphocytes Absolute Auto 1100 /uL (1100-4500); Mean Corpuscular HGB Conc 33.3 % (30-36); Mean Corpuscular Hemoglobin 29.5 PG (26-34); Mean Corpuscular Volume 88.6 fL (80-100); Platelet Count 245 X10^3/uL (150-400)
[2025-03-12 16:04] LABS: Albumin 4.0 g/dL (3.5-5.0); Blood Urea Nitrogen 24 mg/dL (9-20); Calcium 8.8 mg/dL (8.4-10.2); Carbon Dioxide 25 mmol/L (22-32); Chloride 106 mmol/L (98-107); Estimated Glomerular Filt Rate > 60 mL/min (>60); Glucose 112 mg/dL (70-99); HEMOLYSIS < 15 (0-50); Potassium 4.1 mmol/L (3.4-5.1); Sodium 141 mmol/L (137-145)
[2025-03-12 16:15] LABS: Prealbumin 32.4 mg/dL (17.6-36.0)
[2025-03-12 16:19] LABS: Hemoglobin A1C% w Est Avg Glu 5.4 % (4.0-6.0)
[2025-03-12 16:23] LABS: Vitamin D 25 Hydroxy (D3) 21.2 ng/mL (30.0-100.0)
== END ==
PROVIDERS: PCP Nurse Practitioner Family; Referring Provider Orthopaedic Surgery Adult Reconstructive Orthopaedic Surgery; Visit Provider Orthopaedic Surgery Adult Reconstructive Orthopaedic Surgery
DX: Z01.818 Encounter for other preprocedural examination (principal); T84.53XS Infection and inflammatory reaction due to internal right knee prosthesis, sequela
CPT/HCPCS: 36415; 80048; 82040; 82306; 83036; 84134; 85025